=== PATIENT | male | born 1935 | race Caucasian/White ===

== ENCOUNTER 2022-07-13 15:23 | Observation (INO) | payer MEDICARE, OTHER ==
[2022-07-13 16:24] LABS: CHLORIDE,CL 104 mEq/L (98-106); SODIUM,NA 142 mEq/L (136-145)
[2022-07-13 16:34] LABS: ESTIMATED GFR 54 mL/min (>=60)
[2022-07-13] MEDS ORDERED: Ondansetron 4 MG Tab.DIS PO PRN (21:49)
[2022-07-13] MEDS ORDERED: Acetaminophen 325 MG Tab PO PRN (21:49)
[2022-07-13] MEDS ORDERED: Polyethylene Glycol 3350 Powder 17 GM Packet PO PRN (21:49)
[2022-07-14] MEDS ORDERED: Non-Formulary Medication 1 Each (Levothyroxine [Levothyroxine] 150 MCG Tablet) PO SCH (08:00)
[2022-07-14] MEDS ORDERED: Metoprolol Succinate 100 MG Tab.ER**OWN MED PO SCH (08:00)
[2022-07-14] MEDS ORDERED: Bisacodyl 5 MG Tab PO ONE (11:52)
[2022-07-14] MEDS ORDERED: WARFARIN SODIUM 3 MG PO SCH (12:00)
[2022-07-14 12:11] VITALS: BP 144/87; PULSE 78
[2022-07-14] MEDS ORDERED: WARFARIN 3 MG PO ONE (12:30)
[2022-07-15] MEDS ORDERED: WARFARIN 3 MG PO SCH (12:00)
== END 2022-07-14 13:53 | disposition home or self-care (01) ==
LOC: CC.MS 15:23 → CC.FCMC 15:23 → UNDOADMOB 16:37 → CC.MS 16:37
PROVIDERS: ADMIT Family Medicine; ATTEND Nurse Practitioner Family
DX: R41.0 Disorientation, unspecified (principal); E03.9 Hypothyroidism, unspecified; I48.0 Paroxysmal atrial fibrillation; I10 Essential (primary) hypertension; Z79.899 Other long term (current) drug therapy; Z79.01 Long term (current) use of anticoagulants; Z79.890 Hormone replacement therapy; Z88.0 Allergy status to penicillin; Z98.890 Other specified postprocedural states
CPT/HCPCS: 36415; 70450; 80053; 81001; 84443; 85025; 85610; 86140; A9270-GY; G0378

== ENCOUNTER 2024-03-21 17:08 | Observation (INO) | payer MEDICARE, OTHER ==
[2024-03-21] MEDS: Bacitracin Oint 1 GM U/D Packet TOP ONE (17:43)
[2024-03-21] MEDS: Diphtheria,Pertussis(Acell),Tetanus Vaccine 0.5 ML Syringe IM ONE (17:44)
[2024-03-21] MEDS: Lidocaine 1% with EPINEPHrine 1:100,000 10 ML MDV INJECT ONE (17:44)
[2024-03-21 18:09] LABS: BASOPHILS ABSOLUTE AUTO 0.01 10^3/uL (0.00-0.50); BASOPHILS PERCENT AUTO 0.1 % (0-1); EOSINOPHILS ABSOLUTE AUTO 0.02 10^3/uL (0.00-1.50); EOSINOPHILS PERCENT AUTO 0.2 % (0-6); HEMOGLOBIN 14.1 g/dL (14.0-18.0); IMMATURE GRAN ABSOLUTE AUTO 0.02 10^3/uL (0.00-0.49); IMMATURE GRAN PERCENT AUTO 0.2 % (0.0-4.9); LYMPHOCYTES ABSOLUTE AUTO 0.78 10^3/uL (0.60-5.00); LYMPHOCYTES PERCENT AUTO 7.3 % (24-44); MEAN CORPUSCULAR HEMOGLOBIN 33.3 pg (27.0-32.0); MEAN CORPUSCULAR HGB CONC 32.8 g/dL (32.0-36.0); MEAN CORPUSCULAR VOLUME 101.4 fL (83.0-97.0); MONOCYTES ABSOLUTE AUTO 0.54 10^3/uL (0.00-1.50); MONOCYTES PERCENT AUTO 5.1 % (0-10); NEUTROPHILS ABSOLUTE AUTO 9.31 x10^3/uL (1.80-8.00); NEUTROPHILS PERCENT AUTO 87.1 % (41-71); PLATELET COUNT,PLT 152 10^3/uL (150-400); RED BLOOD CELL COUNT 4.24 x10^6/uL (4.50-6.00); WHITE BLOOD CELL COUNT,WBC 10.7 10^3/uL (4.0-11.0)
[2024-03-21 18:22] LABS: ALANINE AMINOTRANSFERASE,ALT 22 U/L (12-78); ALBUMIN 3.3 g/dL (3.4-5.0); ALKALINE PHOSPHATASE 92 U/L (46-116); ASPARTATE AMNIOTRANSFERASE,AST 21 U/L (15-37); BILIRUBIN TOTAL 0.9 mg/dL (0.0-1.0); BLOOD UREA NITROGEN,BUN 32 mg/dL (7-18); C-REACTIVE PROTEIN < 0.50 mg/dL (<=0.50); CALCIUM 9.4 mg/dL (8.4-10.1); CARBON DIOXIDE,CO2 29 mmol/L (21-32); CHLORIDE,CL 105 mEq/L (98-106); CREATININE 1.5 mg/dL (0.7-1.3); EST CRCL DRUG DOSING (CG) 40.34 mL/min; ESTIMATED GFR 45 mL/min (>=60); GLUCOSE RANDOM 181 mg/dL (75-99); POTASSIUM,K 4.5 mEq/L (3.5-5.0); PROTEIN TOTAL,TP 7.2 g/dL (6.4-8.2); SODIUM,NA 144 mEq/L (136-145)
[2024-03-21 18:27] LABS: INR 1.15 (0.92-1.18); PTT,PARTIAL THROMBOPLSTIN TIME 20.7 SEC (20.0-30.0)
[2024-03-21] MEDS ORDERED: Ondansetron 4 MG Tab.DIS PO PRN (19:32)
[2024-03-21] MEDS ORDERED: Docusate Sodium 100 MG Cap PO PRN (19:32)
[2024-03-21] MEDS ORDERED: Ondansetron 4 MG/2 ML SDV IV PRN (19:32)
[2024-03-21] MEDS: Acetaminophen 325 MG Tab PO PRN (20:50)
[2024-03-22] MEDS: Metoprolol Succinate 25 MG Tab.ER PO SCH (07:45)
[2024-03-22] MEDS: Donepezil 5 MG Tab PO SCH (07:45)
[2024-03-22] MEDS: Sertraline 25 MG Tab PO SCH (07:45)
[2024-03-22] MEDS: Furosemide 40 MG Tab PO SCH (07:45)
[2024-03-22] MEDS: Rivaroxaban 10 MG Tab PO SCH (07:45)
[2024-03-22 07:46] LABS: BASOPHILS ABSOLUTE AUTO 0.01 10^3/uL (0.00-0.50); BASOPHILS PERCENT AUTO 0.1 % (0-1); EOSINOPHILS ABSOLUTE AUTO 0.01 10^3/uL (0.00-1.50); EOSINOPHILS PERCENT AUTO 0.1 % (0-6); HEMATOCRIT 43.1 % (42.0-52.0); IMMATURE GRAN ABSOLUTE AUTO 0.02 10^3/uL (0.00-0.49); IMMATURE GRAN PERCENT AUTO 0.2 % (0.0-4.9); LYMPHOCYTES ABSOLUTE AUTO 1.05 10^3/uL (0.60-5.00); LYMPHOCYTES PERCENT AUTO 12.6 % (24-44); MEAN CORPUSCULAR HEMOGLOBIN 32.6 pg (27.0-32.0); MEAN CORPUSCULAR HGB CONC 32.5 g/dL (32.0-36.0); MEAN CORPUSCULAR VOLUME 100.5 fL (83.0-97.0); MONOCYTES ABSOLUTE AUTO 0.85 10^3/uL (0.00-1.50); MONOCYTES PERCENT AUTO 10.2 % (0-10); NEUTROPHILS ABSOLUTE AUTO 6.39 x10^3/uL (1.80-8.00); NEUTROPHILS PERCENT AUTO 76.8 % (41-71); PLATELET COUNT,PLT 151 10^3/uL (150-400); RED BLOOD CELL COUNT 4.29 x10^6/uL (4.50-6.00); WHITE BLOOD CELL COUNT,WBC 8.3 10^3/uL (4.0-11.0)
[2024-03-22 08:21] LABS: CALCIUM 9.2 mg/dL (8.4-10.1); CREATININE 1.5 mg/dL (0.7-1.3); EST CRCL DRUG DOSING (CG) 40.34 mL/min
[2024-03-22 08:41] LABS: APPEARANCE,URINE TURBID (CLEAR); COLOR,URINE YELLOW (YELLOW); GLUCOSE,URINE NEGATIVE (NEGATIVE); KETONES,URINE 15 mg/dL (NEGATIVE); LEUKOCYTE ESTERASE,URINE NEGATIVE (NEGATIVE); NITRITE,URINE NEGATIVE (NEGATIVE); OCCULT BLOOD,URINE NEGATIVE (NEGATIVE); PH,URINE 5.5 (4.5-8.0); PROTEIN,URINE 30 mg/dL (NEGATIVE); UROBILINOGEN,URINE 0.2 EU/dL (0.2-1.0)
[2024-03-22 08:43] LABS: BILIRUBIN,URINE SMALL (NEGATIVE)
[2024-03-22 09:31] LABS: POTASSIUM,K 4.8 mEq/L (3.5-5.0)
[2024-03-23 07:16] LABS: BASOPHILS ABSOLUTE AUTO 0.03 10^3/uL (0.00-0.50); BASOPHILS PERCENT AUTO 0.5 % (0-1); EOSINOPHILS ABSOLUTE AUTO 0.09 10^3/uL (0.00-1.50); EOSINOPHILS PERCENT AUTO 1.5 % (0-6); IMMATURE GRAN ABSOLUTE AUTO 0.01 10^3/uL (0.00-0.49); IMMATURE GRAN PERCENT AUTO 0.2 % (0.0-4.9); LYMPHOCYTES ABSOLUTE AUTO 1.14 10^3/uL (0.60-5.00); LYMPHOCYTES PERCENT AUTO 19.5 % (24-44); MEAN CORPUSCULAR HEMOGLOBIN 32.9 pg (27.0-32.0); MEAN CORPUSCULAR HGB CONC 32.5 g/dL (32.0-36.0); MEAN CORPUSCULAR VOLUME 101.3 fL (83.0-97.0); MONOCYTES ABSOLUTE AUTO 0.72 10^3/uL (0.00-1.50); MONOCYTES PERCENT AUTO 12.3 % (0-10); NEUTROPHILS ABSOLUTE AUTO 3.87 x10^3/uL (1.80-8.00); PLATELET COUNT,PLT 132 10^3/uL (150-400); RED BLOOD CELL COUNT 3.95 x10^6/uL (4.50-6.00); WHITE BLOOD CELL COUNT,WBC 5.9 10^3/uL (4.0-11.0)
[2024-03-23 07:32] LABS: CALCIUM 8.8 mg/dL (8.4-10.1); CREATININE 1.5 mg/dL (0.7-1.3); EST CRCL DRUG DOSING (CG) 40.34 mL/min; POTASSIUM,K 4.2 mEq/L (3.5-5.0)
[2024-03-23 07:36] VITALS: BP 127/79; PULSE 82
== END 2024-03-23 10:55 | disposition home or self-care (01) ==
LOC: CC.ED 17:08 → CC.MS 19:13 → UNDOADMOB 19:20 → CC.MS 19:20
PROVIDERS: ADMIT Nurse Practitioner Family; ATTEND Nurse Practitioner Family
DX: S01.81XA Laceration without foreign body of other part of head, initial encounter (principal); R41.0 Disorientation, unspecified; I48.91 Unspecified atrial fibrillation; I10 Essential (primary) hypertension; Z79.899 Other long term (current) drug therapy; Z88.0 Allergy status to penicillin; Z79.01 Long term (current) use of anticoagulants; W19.XXXA Unspecified fall, initial encounter; Y92.008 Other place in unspecified non-institutional (private) residence as the place of occurrence of the external cause
CPT/HCPCS: 12013; 36415; 70450; 80048; 80053; 81003; 82550; 85025; 85610; 85730; 86140; 90471; 90715; 97161; 99285; A9270; G0378; 99223; 99233; 99238; J3490

== ENCOUNTER 2024-11-06 08:27 | Emergency (ER) | payer MEDICARE, OTHER ==
[2024-11-06] MEDS: HYDROmorphone 0.5 MG/0.5 ML Syringe SUBCUT STA (08:58)
[2024-11-06] MEDS ORDERED: Sodium Chloride 0.9% 10 ML Syringe FLUSH PRN (08:59)
[2024-11-06 09:05] LABS: BASOPHILS ABSOLUTE AUTO 0.02 10^3/uL (0.00-0.50); BASOPHILS PERCENT AUTO 0.3 % (0-1); EOSINOPHILS ABSOLUTE AUTO 0.08 10^3/uL (0.00-1.50); EOSINOPHILS PERCENT AUTO 1.3 % (0-6); HEMATOCRIT 34.2 % (42.0-52.0); HEMOGLOBIN 10.8 g/dL (14.0-18.0); IMMATURE GRAN ABSOLUTE AUTO 0.04 10^3/uL (0.00-0.49); IMMATURE GRAN PERCENT AUTO 0.6 % (0.0-4.9); LYMPHOCYTES ABSOLUTE AUTO 0.99 10^3/uL (0.60-5.00); LYMPHOCYTES PERCENT AUTO 15.7 % (24-44); MEAN CORPUSCULAR HEMOGLOBIN 32.7 pg (27.0-32.0); MEAN CORPUSCULAR HGB CONC 31.6 g/dL (32.0-36.0); MEAN CORPUSCULAR VOLUME 103.6 fL (83.0-97.0); MONOCYTES ABSOLUTE AUTO 0.49 10^3/uL (0.00-1.50); MONOCYTES PERCENT AUTO 7.8 % (0-10); NEUTROPHILS ABSOLUTE AUTO 4.67 x10^3/uL (1.80-8.00); NEUTROPHILS PERCENT AUTO 74.3 % (41-71); PLATELET COUNT,PLT 189 10^3/uL (150-400); WHITE BLOOD CELL COUNT,WBC 6.3 10^3/uL (4.0-11.0)
[2024-11-06 09:16] LABS: INR 1.39 (0.92-1.18); PROTHROMBIN TIME 14.4 SEC (9.3-11.3)
[2024-11-06 09:21] LABS: ALANINE AMINOTRANSFERASE,ALT 20 U/L (12-78); ALBUMIN 2.9 g/dL (3.4-5.0); ALKALINE PHOSPHATASE 93 U/L (46-116); ASPARTATE AMNIOTRANSFERASE,AST 22 U/L (15-37); BILIRUBIN TOTAL 0.8 mg/dL (0.0-1.0); BLOOD UREA NITROGEN,BUN 26 mg/dL (7-18); C-REACTIVE PROTEIN 1.03 mg/dL (<=0.50); CALCIUM 8.5 mg/dL (8.4-10.1); CARBON DIOXIDE,CO2 31 mmol/L (21-32); CHLORIDE,CL 103 mEq/L (98-106); CREATININE 1.2 mg/dL (0.7-1.3); ESTIMATED GFR 59 mL/min (>=60); GLUCOSE RANDOM 128 mg/dL (75-99); MAGNESIUM 1.8 mg/dL (1.8-2.4); POTASSIUM,K 3.7 mEq/L (3.5-5.0); PROTEIN TOTAL,TP 6.5 g/dL (6.4-8.2); SODIUM,NA 142 mEq/L (136-145)
[2024-11-06 09:21] LABS: APPEARANCE,URINE SLIGHTLY CLOUDY (CLEAR); BILIRUBIN,URINE NEGATIVE (NEGATIVE); COLOR,URINE YELLOW (YELLOW); GLUCOSE,URINE NEGATIVE (NEGATIVE); KETONES,URINE NEGATIVE (NEGATIVE); LEUKOCYTE ESTERASE,URINE NEGATIVE (NEGATIVE); NITRITE,URINE NEGATIVE (NEGATIVE); OCCULT BLOOD,URINE LARGE (NEGATIVE); PROTEIN,URINE 30 mg/dL (NEGATIVE); UROBILINOGEN,URINE 0.2 EU/dL (0.2-1.0)
[2024-11-06 09:29] LABS: BACTERIA,URINE RARE /HPF (NOT SEEN); EPITHELIAL CELLS,URINE NOT SEEN /HPF (NOT SEEN); MUCUS,URINE OCCASIONAL /HPF (NOT SEEN); RBC,URINE 20-30 /HPF (0-5); WBC,URINE 0-5 /HPF (0-5)
[2024-11-06] MEDS: Acetaminophen/HYDROcodone 325-5 MG Tab PO ONE (09:59)
[2024-11-06] MEDS: HYDROmorphone 0.5 MG/0.5 ML Syringe IVPUSH ONE ×2 (09:59→11:11)
== END 2024-11-06 12:00 | disposition hospice, home (50) ==
LOC: CC.ED 08:27
DX: S72.032A Displaced midcervical fracture of left femur, initial encounter for closed fracture (principal); I48.91 Unspecified atrial fibrillation; I10 Essential (primary) hypertension; Z88.0 Allergy status to penicillin; Z79.899 Other long term (current) drug therapy; Z79.01 Long term (current) use of anticoagulants; W18.39XA Other fall on same level, initial encounter; Y93.89 Activity, other specified
CPT/HCPCS: 36415; 51702; 70450; 71045; 72170; 73552; 80053; 81001; 83735; 84484; 85025; 85610; 85730; 86140; 93005; 93010; 96372; 96374; 96376; 99284; 99285; A9270